=== PATIENT | male | born 1990 | race African-American/Black ===

== ENCOUNTER 2018-06-06 09:08 | Emergency (ER) | payer MEDICAID ==
[~2018-06-06] VITALS: Ht 172.7 cm; Wt 75.7 kg
[2018-06-06 09:13] VITALS: BP 124/74
[2018-06-06] MEDS ORDERED: IBUPROFEN 200 MG TABLET PO ONE (09:30)
[2018-06-06] MEDS ORDERED: IBUPROFEN 200 MG TABLET ONE (09:32)
== END 2018-06-06 11:13 | disposition home or self-care (01) ==
LOC: ED 11:06
DX: S93.492A Sprain of other ligament of left ankle, initial encounter (principal); W11.XXXA Fall on and from ladder, initial encounter; Y93.89 Activity, other specified; Y92.009 Unspecified place in unspecified non-institutional (private) residence as the place of occurrence of the external cause; Y99.8 Other external cause status
CPT/HCPCS: 99284

== ENCOUNTER 2019-04-23 07:25 | Emergency (ER) | payer MEDICAID ==
[~2019-04-23] VITALS: Ht 170.2 cm; Wt 73.4 kg
[2019-04-23 07:28] VITALS: BP 150/79
== END 2019-04-23 08:46 | disposition home or self-care (01) ==
LOC: ED 07:54
DX: G47.9 Sleep disorder, unspecified (principal)
CPT/HCPCS: 36415; 80053; 80307; 85025; 99283